=== PATIENT | male | born 1960 | race Caucasian/White ===

== ENCOUNTER 2017-12-02 10:24 | Emergency (ER) | payer BC, OTHER ==
[2017-12-02 10:34] VITALS: BMI 37.6
[2017-12-02 10:37] VITALS: BP 146/85
--- NOTE | 2017-12-02 11:05 | DR.EXTPAIN ---
HPI - Time seen Time seen: 10:45 - PCP Primary Care Physician: DAVON ARZOLA - HPI Comment HPI Comment: WORSE TODAY. PCP SENT PATIENT TO ED. PAIN SEVERE THIS AM. ALSO RASH LOWER MID ABDOMEN THAT IS ITCHING. MACULO PAPULAR RASN, NOT VESICULAR. - Complaint/Symptoms Chief Complaint Doctor Comments: ABDOMINAL AND LOWER BACK PAIN TIMES 2 DAYS. Chief Complaint:: PT C/O ABD PAIN THAT STARTED OVER THE WEEKEND AND THAT HE THINKS HE MAY HAVE A KINDNEY STONES, PT SAW JUDY TODAY AND A UA WAS COLLECTED AND PT WAS TOLD TO COME TO THE ER DUE TO NEED OF FURTHER EVALUATION.. Self Treatment fo Chief Complaint: NORCO, BC POWDERS. - Nurses notes reviewed Nurses Notes Review: Yes - Source History Provided: Patient - Mode of arrival Mode of Arrival: Ambulatory - Timing Onset of Chief Complaint: 11/30/17 - Context History of: Arthritis - Associated signs and symptoms Associated Signs and Symptoms: Pain PMH - PMH Past Medical History: Yes Past Medical History: Migraines Past Medical History Comment: DDD, STENOSIS OF BACK . Past Surgical History: Yes Surgical History: Appendectomy Past Surgical History Comment: KNEE, AND NECK, HERNIA , - Family History History of Family Medical Conditions: Yes Family Medical History: Diabetes Mellitus, Hypertension - Social History Does patient currently use any type of tobacco product: Yes Type of Tobacco Use: Cigarettes How many years tobacco product used: 30 Does any household member use tobacco: No Alcohol Use: None Do you use any recreational Drugs:: No Lives With: Family Lives Where: Home - infectious screening In the last 2 months have you had wt loss of >10#?: NO Have you had fever, night sweats or hemotysis?: No Have you traveled outside the country in the last 6 months?: No Isolation: Standard ROS - Review of Systems Constitutional: No Symptoms Reported Eyes: No Symptoms Reported ENTM: No Symptoms Reported Respiratoy: No Symptoms Reported Cardiovascular: No Symptoms Reported Gastrointestinal/Abdominal: No Symptoms Reported Genitourinary: negative: Dysuria, Frequency, Hematuria Neurological: No Symptoms Reported Musculoskeletal: Joint Pain, Muscle Pain Integumentary: No Symptoms Reported Hematologic/Lymphatic: No Symptoms Reported Endocrine: No Symptoms Reported All Other Systems: Reviewed and Negative PE - Vital Signs Vitals: Temperature 97.9 F Pulse Rate 91 Respiratory Rate 20 Blood Pressure [Left Arm] 106/58 Blood Pressure 146/85 O2 Sat by Pulse Oximetry 98 - General Limitations: No Limitations General Appearance: Alert - Head Head Exam: Normal Inspection - Eyes Eye exam: Normal Appearance - ENT ENT Exam: Normal External Ear Exam - Neck Neck Exam: Normal Inspection - Chest Chest Inspection: Symmetric Chest Wall Rise - Respiratory Respiratory Exam: Normal Lung Sounds Bilat Respiratory Exam: Bilateral Clear to Auscultation - Cardiovascular Cardiovascular Exam: Regular Rate, Normal Rhythm - Abdominal Exam Abdominal Exam: Normal Bowel Sounds, Soft, Tenderness Abdominal Tenderness: RLQ, LLQ, Mild - Extremities Extremities Exam: Normal Inspection - Lower Extremities Neurovascular/Tendon Exam: Normal Capillary Refill Gait Exam: Observed and Normal - Back Back Exam: Paraspinal Tenderness - Neurological Neurological Exam: Alert, Oriented X3 - Psychiatric Psychiatric Exam: Anxious - Skin Skin Exam: Normal Color, Erythema MDM - Differential Diagnosis Differential Diagnosis: Fracture, Sprain (UTI, KIDNEY STONE) Course - Treatment Treatment: SEE ORDERS. - Education/Counseling Education/Counseling: Patient, Education Educated On: Diagnosis, Needs for Follow Up ROR - Labs Reviewed Laboratory Results Reviewed?: Yes Result Diagrams: 12/02/17 11:19 12/02/17 11:19 Laboratory: WBC 8.2 X10^3/uL (3.6-10.0) 12/02/17 11:19 RBC 5.04 X10^6/uL (4.7-6.0) 12/02/17 11:19 Hgb 15.5 g/dL (13.5-18.0) 12/02/17 11:19 Hct 45.2 % (42.0-54.0) 12/02/17 11:19 MCV 89.8 fL (80.0-100.0) 12/02/17 11:19 MCH 30.9 pg (27.0-34.0) 12/02/17 11:19 MCHC 34.4 g/dL (33.0-35.0) 12/02/17 11:19 RDW 14.8 % (11.6-16.5) 12/02/17 11:19 Plt Count 168 X10^3/uL (150.0-450.0) 12/02/17 11:19 MPV 9.2 fL (7.4-11.0) 12/02/17 11:19 Neut % 73.1 % (42.0-75.0) 12/02/17 11:19 Lymph % 15.6 % (21.0-51.0) L 12/02/17 11:19 [place] % 8.4 % (0.0-13.0) 12/02/17 11:19 Eos % 2.2 % (0.9-2.9) 12/02/17 11:19 Baso % 0.7 % (0.2-1.0) 12/02/17 11:19 Neut # 6.0 x10^3/uL (2.2-4.8) H 12/02/17 11:19 Lymph # 1.3 X10^3/uL (1.3-2.9) 12/02/17 11:19 [place] # 0.7 x10^3/uL (0.3-0.8) 12/02/17 11:19 Eos # 0.2 x10^3/uL (0.0-0.2) 12/02/17 11:19 Baso # 0.1 X10^3/uL (0.0-0.1) 12/02/17 11:19 Absolute Nucleated RBC 0.2 /100WBC 12/02/17 11:19 INR Target Range - 12/02/17 11:19 INR 1.11 (0.8-1.3) 12/02/17 11:19 PTT 33.9 SECONDS (22.9-36.5) 12/02/17 11:19 PTT Comment - 12/02/17 11:19 Sodium 133 mmol/L (136-145) L 12/02/17 11:19 Corrected Sodium TNP 12/02/17 11:19 Potassium 4.0 mmol/L (3.5-5.1) 12/02/17 11:19 Chloride 107 mmol/L (98-107) 12/02/17 11:19 Carbon Dioxide 24.5 mmol/L (21-32) 12/02/17 11:19 BUN 12 mg/dL (7-18) 12/02/17 11:19 Creatinine 1.01 mg/dL (0.70-1.30) 12/02/17 11:19 Est GFR (MDRD) Af Amer > 60 (>60) 12/02/17 11:19 Est GFR (MDRD) Non-Af > 60 (>60) 12/02/17 11:19 Glucose 102 mg/dL (65-99) H 12/02/17 11:19 Calcium 9.0 mg/dL (8.5-10.1) 12/02/17 11:19 Corrected Calcium TNP 12/02/17 11:19 Total Bilirubin 0.30 mg/dL (0.2-1.0) 12/02/17 11:19 AST 20 Units/L (15-37) 12/02/17 11:19 ALT 16 Units/L (12-78) 12/02/17 11:19 Alkaline Phosphatase 66 Units/L (46-116) 12/02/17 11:19 Total Protein 8.1 g/dL (6.4-8.2) 12/02/17 11:19 Albumin 3.6 g/dL (3.4-5.0) 12/02/17 11:19 Globulin 4.5 g/dL (2.5-4.5) 12/02/17 11:19 Albumin/Globulin Ratio 0.8 Ratio (1.1-2.1) L 12/02/17 11:19 Amylase 52 Units/L (25-115) 12/02/17 11:19 Lipase 178 Units/L (73-393) 12/02/17 11:19 - XRAY XRAY Interpreted by: Radiologist XRAY Findings: REPORT DISCUSS WITH PATIENT AND . - Diagnosis Discharge Problem: Musculoskeletal pain, Pruritus, Rash Back pain Qualifiers: Back pain location: low back pain Chronicity: acute Back pain laterality: unspecified Sciatica presence: without sciatica Qualified Code(s): M54.5 - Low back pain Abdominal pain Qualifiers: Abdominal location: generalized Qualified Code(s): R10.84 - Generalized abdominal pain - Discharge Plan Disposition: HOME, SELF-CARE Condition: Stable Prescriptions: Cyclobenzaprine HCl [FLEXERIL 10 MG *] 10 mg PO TID #20 tab Hydroxyzine Pamoate [Vistaril] 25 mg PO TID PRN #15 cap PRN Reason: Ketorolac Tromethamine [Toradol Tab] 10 mg PO Q8H PRN #20 tab PRN Reason: Pain Tramadol HCl 50 mg PO Q8H #15 tablet - Follow ups/Referrals Follow ups/Referrals: JUDY BOYLE [Primary Care Provider] - 3 days - Instructions Instructions: Pruritus, Abdominal Pain, Adult, [id number], Back Pain, Adult, [id number] Additional Instructions: RETURN TO ED IF WORSE.
[2017-12-02] MEDS ORDERED: ZOFRAN INJ 4 MG VIAL IVP ONE (11:09)
[2017-12-02] MEDS ORDERED: MORPHINE SULFATE INJ 4 MG IVP ONE (11:09)
[2017-12-02] MEDS ORDERED: NS 1000 ML 1,000 ML IV ONE (11:09)
[2017-12-02] MEDS ORDERED: NS 1000 ML 1,000 ML ONE (11:16)
[2017-12-02] MEDS ORDERED: ZOFRAN INJ 4 MG VIAL ONE (11:16)
[2017-12-02] MEDS ORDERED: MORPHINE SULFATE INJ 4 MG ONE (11:17)
[2017-12-02 11:36] LABS: BASOPHILS # (AUTO) 0.1 X10^3/uL (0.0-0.1); BASOPHILS % (AUTO) 0.7 % (0.2-1.0); EOSINOPHILS # (AUTO) 0.2 x10^3/uL (0.0-0.2); EOSINOPHILS % (AUTO) 2.2 % (0.9-2.9); HEMATOCRIT 45.2 % (42.0-54.0); HEMOGLOBIN 15.5 g/dL (13.5-18.0); LYMPHOCYTES # (AUTO) 1.3 X10^3/uL (1.3-2.9); LYMPHOCYTES % (AUTO) 15.6 % (21.0-51.0); MEAN CORPUSCULAR HEMOGLOBIN 30.9 pg (27.0-34.0); MEAN CORPUSCULAR HGB CONC 34.4 g/dL (33.0-35.0); MEAN CORPUSCULAR VOLUME 89.8 fL (80.0-100.0); MEAN PLATELET VOLUME 9.2 fL (7.4-11.0); MONOCYTES # (AUTO) 0.7 x10^3/uL (0.3-0.8); MONOCYTES % (AUTO) 8.4 % (0.0-13.0); NEUTROPHILS % (AUTO) 73.1 % (42.0-75.0); PLATELET COUNT 168 X10^3/uL (150.0-450.0); RED BLOOD COUNT 5.04 X10^6/uL (4.7-6.0); RED CELL DISTRIBUTION WIDTH 14.8 % (11.6-16.5); WHITE BLOOD COUNT 8.2 X10^3/uL (3.6-10.0)
[2017-12-02 11:38] LABS: ALANINE AMINOTRANSFERASE 16 Units/L (12-78); ALBUMIN 3.6 g/dL (3.4-5.0); ALKALINE PHOSPHATASE 66 Units/L (46-116); AMYLASE 52 Units/L (25-115); ASPARTATE AMINO TRANSFERASE 20 Units/L (15-37); BLOOD UREA NITROGEN 12 mg/dL (7-18); CARBON DIOXIDE 24.5 mmol/L (21-32); CHLORIDE 107 mmol/L (98-107); CREATININE 1.01 mg/dL (0.70-1.30); LIPASE 178 Units/L (73-393); SODIUM 133 mmol/L (136-145); TOTAL PROTEIN 8.1 g/dL (6.4-8.2); eGFR BLACK RACES > 60 (>60); eGFR NON BLACK RACES > 60 (>60)
--- NOTE | 2017-12-02 12:22 | CT ---
CT ABDOMEN AND PELVIS WITHOUT CONTRAST CLINICAL HISTORY: 57-year-old male with right lower quadrant pain. COMPARISON: CT abdomen and pelvis 07/02/2014. TECHNIQUE: Multiple contiguous computed tomographic axial images of the abdomen and pelvis were obtai melania without the use of oral or intravenous contrast. Images were reformatted in the coronal and sagit surya planes. FINDINGS: The lung bases demonstrate no evidence of focal air-space opacification, pleural effusion, pneumothor ax, or suspicious pulmonary nodules. The imaged inferior mediastinum and heart are normal in appeara nce without evidence of pericardial effusion. The liver, gallbladder, and spleen are within normal limits for noncontrast imaging. Moderately fatty replaced pancreas, which is otherwise unremarkable. Adrenal glands are unremarkable bilaterally. Stable bilateral renal cystic lesions with vascular calc ifications versus nonobstructing bilateral renal stones present. There are no nephroureteral stones o r perinephric fluid collections. There is no evidence of hydroureteronephrosis and the ureters run in an unobstructed course to a well distended urinary bladder. The prostate, seminal vesicles, and external genitalia are within normal limits. Status post appendectomy. The bowel is without obstruction or inflammation and there is no free flui d or free air within the peritoneal cavity. Diverticulosis without CT evidence of diverticulitis. The re are no pathologically enlarged lymph nodes in the abdomen or pelvis. Severe atherosclerotic calcification within the aorta and its branches. Soft tissues are normal. The osseous structures are intact without fracture or malalignment. Multiple chronic right-sided rib fractures. IMPRESSION: 1. Multiple bilateral renal punctate calcifications, atherosclerotic disease versus nonobstructing st ones with multiple stable appearing bilateral renal cysts. 2. Diverticulosis without CT evidence of diverticulitis. 3. Status post appendectomy. 4. No acute intra-abdominal or intrapelvic process otherwise. Reported By:
== END 2017-12-02 13:47 | disposition home or self-care (01) ==
LOC: ER 10:40
DX: R10.84 Generalized abdominal pain (principal); M79.1 Myalgia; R21 Rash and other nonspecific skin eruption; L29.8 Other pruritus; M54.5 Low back pain
CPT/HCPCS: 36415; 74176; 80053; 82150; 83690; 85025; 85610; 85730; 96365; 96374; 96375; 99282; 99283; A4222; J2270; J2405

== ENCOUNTER → 2017-12-03 | Outpatient (CLI) | payer BC ==
[2017-12-02 10:37] VITALS: BP 146/85
--- NOTE | 2017-12-03 16:53 | CT ---
HISTORY: Right lower quadrant pain. Study: CT abdomen and pelvis with contrast Comparison: CT abdomen/pelvis dated December 02, 2017. Technique: Multiple axial images of the abdomen and pelvis were obtained from the lung bases to the pubic symphy sis after the administration of IV contrast. Dose reduction techniques including Automated Exposure Control (AEC) and adjustment of mA and kV were utilized. Findings: The visualized portions of the lung bases are unremarkable. Diffuse fatty infiltration of the liver. No obvious liver lesions. Multiple bilateral renal cysts and too small to characterize hypodense lesi ons appear unchanged given technique. Multiple bilateral nonobstructing renal nephroliths appear unch anged. The spleen, pancreas, and adrenal glands are unremarkable in their CT appearance. The gallblad alyssa is unremarkable in its CT appearance. No significant mesenteric lymphadenopathy or stranding can be observed. No free fluid or free air is seen within the abdomen. Scattered colonic diverticulum without evidence of diverticulitis. Remaining large and small bowel are unremarkable. The appendix i s surgically absent. The urinary bladder is grossly unremarkable. Degenerative changes of the spine. No aggressive osseous lesions. Vascular calcifications without evidence of aneurysmal dilatation. IMPRESSION: 1. No CT evidence of acute abdominal/pelvic pathology. 2. Other chronic findings as above. Reported By:
== END ==
LOC: RAD 15:13
PROVIDERS: ATTEND Nurse Practitioner
DX: R10.84 Generalized abdominal pain (principal)
CPT/HCPCS: 74177; A4222

== ENCOUNTER 2022-08-20 23:50 | Observation (INO) ==
--- NOTE | 2022-08-21 00:03 | DR.URIAD ---
HPI Time Seen Time Seen by Provider: 08/21/22 00:03 PMH PMH Past Medical History: Migraines Past Surgical History: Yes Surgical History: Appendectomy Family History Family Medical History: Diabetes Mellitus and Hypertension Social History Do you use any recreational Drugs:: No PE Vital Signs Vitals: Temperature 98.7 F Pulse Rate [Right] 66 Pulse Rate 71 Respiratory Rate 24 Blood Pressure [Left Arm] 106/58 Blood Pressure 117/60 O2 Sat by Pulse Oximetry 91 ROR Labs Reviewed Result Diagrams: 08/21/22 00:20 08/21/22 00:20 Laboratory: WBC 7.4 X10^3/uL (3.6-10.0) 08/21/22 00:20 RBC 4.33 X10^6/uL (4.7-6.0) L 08/21/22 00:20 Hgb 14.0 g/dL (13.5-18.0) 08/21/22 00:20 Hct 39.8 % (42.0-54.0) L 08/21/22 00:20 MCV 91.9 fL (80.0-100.0) 08/21/22 00:20 MCH 32.4 pg (27.0-34.0) 08/21/22 00:20 MCHC 35.2 g/dL (33.0-35.0) H 08/21/22 00:20 RDW 14.4 % (11.6-16.5) 08/21/22 00:20 Plt Count 93 X10^3/uL (150.0-450.0) L 08/21/22 00:20 Plt Count Comment Decreased (ADEQUATE) 08/21/22 00:20 MPV 8.3 fL (7.4-11.0) 08/21/22 00:20 Neut % (Auto) 91.6 % (42.0-75.0) H 08/21/22 00:20 Lymph % (Auto) 3.2 % (21.0-51.0) L 08/21/22 00:20 [place] % (Auto) 5.1 % (0.0-13.0) 08/21/22 00:20 Eos % (Auto) 0.0 % (0.9-2.9) L 08/21/22 00:20 Baso % (Auto) 0.1 % (0.2-1.0) L 08/21/22 00:20 Neut # (Auto) 6.8 x10^3/uL (2.2-4.8) H 08/21/22 00:20 Lymph # (Auto) 0.2 X10^3/uL (1.3-2.9) L 08/21/22 00:20 [place] # (Auto) 0.4 x10^3/uL (0.3-0.8) 08/21/22 00:20 Eos # (Auto) 0.0 x10^3/uL (0.0-0.2) 08/21/22 00:20 Baso # (Auto) 0.0 X10^3/uL (0.0-0.1) 08/21/22 00:20 Absolute Nucleated RBC 0.0 /100WBC 08/21/22 00:20 Total Counted 100 08/21/22 00:20 Neutrophils % (Manual) 93 % (39-76) H 08/21/22 00:20 Band Neutrophils % 3 % (0-10) 08/21/22 00:20 Lymphocytes % (Manual) 2 % (13-43) L 08/21/22 00:20 Monocytes % (Manual) 2 % (4-9) L 08/21/22 00:20 Plt Morphology Comment Normal (NORMAL) 08/21/22 00: RBC Morphology Normal (NORMAL) 08/21/22 00:20 D-Dimer 0.59 ug/ml (0.0-0.57) H 08/21/22 00:20 Sample Site Lr 08/21/22 00:33 ABG pH 7.390 (7.35-7.45) 08/21/22 00: ABG pCO2 41.0 mmHg (35.0-45.0) 08/21/22 00: ABG pO2 44.0 mmHg (80.0-100.0) L* 08/21/22: ABG HCO3 24.8 mmol/L (22-26) 08/21/22 00: ABG O2 Saturation 79.0 % (90-100) L* 08/21/22 00: ABG Base Excess -0.2 mmol/L (-2.0-2.0) 08/21/22 00:33 [place] Test Pos 08/21/22 00:33 A-a Gradient 54.0 mmHg 08/21/22 00:33 FiO2 21.0 08/21/22 00:33 Blood Gas Comments More well ae 08/21/22 00:33 Sodium 135 mmol/L (136-145) L 08/21/22 00:20 Corrected Sodium 137 mmol/L (136-145) 08/21/22 00:20 Potassium 3.7 mmol/L (3.5-5.1) 08/21/22 00:20 Chloride 100 mmol/L (98-107) 08/21/22 00:20 Carbon Dioxide 24.1 mmol/L (21-32) 08/21/22 00:20 BUN 17 mg/dL (7-18) 08/21/22 00:20 Creatinine 1.19 mg/dL (0.70-1.30) 08/21/22 00:20 Est GFR (MDRD) Af Amer > 60 (>60) 08/21/22 00:20 Est GFR (MDRD) Non-Af > 60 (>60) 08/21/22 00:20 Glucose 203 mg/dL (65-99) H 08/21/22 00:20 Lactic Acid 1.0 mmol/L (0.4-2.0) 08/21/22 00:20 Calcium 7.7 mg/dL (8.5-10.1) L 08/21/22 00:20 Corrected Calcium 8.3 mg/dL (8.5-10.1) L 08/21/22 00:20 Total Bilirubin 0.30 mg/dL (0.2-1.0) 08/21/22 00:20 AST 27 Units/L (15-37) 08/21/22 00:20 ALT 13 Units/L (12-78) 08/21/22 00:20 Alkaline Phosphatase 45 Units/L (46-116) L 08/21/22 00:20 Creatine Kinase 287 Units/L (39-308) 08/21/22 00:20 Troponin I High Sens 9.2 ng/L (4.0-60.0) 08/21/22 00:20 C-Reactive Protein 129.50 mg/L (0-3.0) H 08/21/22 00:20 B-Natriuretic Peptide 28.7 pg/mL (0-79) 08/21/22 00:20 Total Protein 7.1 g/dL (6.4-8.2) 08/21/22 00:20 Albumin 3.3 g/dL (3.4-5.0) L 08/21/22 00:20 Globulin 3.8 g/dL (2.5-4.5) 08/21/22 00:20 Albumin/Globulin Ratio 0.9 Ratio (1.1-2.1) L 08/21/22 00:20 SARS-CoV-2 (PCR) Negative (NEGATIVE) 08/21/22 00:07 Influenza Type A (PCR) Positive (NEGATIVE) A 08/21/22 00:07 Influenza Type B (PCR) Negative (NEGATIVE) 08/21/22 00:07 RSV (PCR) Negative (NEGATIVE) 08/21/22 00:07 Opioid Opioid Risk Tool Total: 0 Total Score Risk Category: Low Risk Copyright: Darian EDWARDS predicting aberrant behaviors Discharge Plan Diagnosis Discharge Problem: Influenza A, Hypoxia, Bronchitis Discharge Plan Patient Disposition: 01 HOME, SELF-CARE Condition: Stable Orders to Discharge Patient Discharge Orders: Transfer (Routine); Ordered 08/21/22 Ordered By: HAYLIE GREGG
[2022-08-21 00:38] LABS: ABG BASE EXCESS -0.2 mmol/L (-2.0-2.0); ABG HCO3 24.8 mmol/L (22-26)
[2022-08-21 00:39] LABS: ABG ALLEN TEST POS
[2022-08-21 00:57] LABS: BASOPHILS % (AUTO) 0.1 % (0.2-1.0); HEMATOCRIT 39.8 % (42.0-54.0); LYMPHOCYTES # (AUTO) 0.2 X10^3/uL (1.3-2.9); LYMPHOCYTES % (AUTO) 3.2 % (21.0-51.0); MEAN CORPUSCULAR HEMOGLOBIN 32.4 pg (27.0-34.0); MEAN CORPUSCULAR HGB CONC 35.2 g/dL (33.0-35.0); MEAN CORPUSCULAR VOLUME 91.9 fL (80.0-100.0); MEAN PLATELET VOLUME 8.3 fL (7.4-11.0); MONOCYTES # (AUTO) 0.4 x10^3/uL (0.3-0.8); MONOCYTES % (AUTO) 5.1 % (0.0-13.0); NEUTROPHILS # (AUTO) 6.8 x10^3/uL (2.2-4.8); NEUTROPHILS % (AUTO) 91.6 % (42.0-75.0); RED BLOOD COUNT 4.33 X10^6/uL (4.7-6.0); RED CELL DISTRIBUTION WIDTH 14.4 % (11.6-16.5); WHITE BLOOD COUNT 7.4 X10^3/uL (3.6-10.0)
[2022-08-21 00:58] LABS: ALANINE AMINOTRANSFERASE 13 Units/L (12-78); ALBUMIN 3.3 g/dL (3.4-5.0); ALKALINE PHOSPHATASE 45 Units/L (46-116); ASPARTATE AMINO TRANSFERASE 27 Units/L (15-37); BLOOD UREA NITROGEN 17 mg/dL (7-18); CALCIUM 7.7 mg/dL (8.5-10.1); CARBON DIOXIDE 24.1 mmol/L (21-32); CHLORIDE 100 mmol/L (98-107); COR CA(FOR HYPOALB) 8.3 mg/dL (8.5-10.1); COR NA(FOR HYPERGLY) 137 mmol/L (136-145); CREATINE KINASE 287 Units/L (39-308); CREATININE 1.19 mg/dL (0.70-1.30); SODIUM 135 mmol/L (136-145); TOTAL PROTEIN 7.1 g/dL (6.4-8.2); eGFR NON BLACK RACES > 60 (>60)
[2022-08-21 01:13] LABS: BAND NEUTROPHILS % 3 % (0-10); PLATELET MORPHOLOGY COMMENT NORMAL (NORMAL)
[2022-08-21] MEDS ORDERED: NS 100 ML IV 100 ML ONE (02:38)
--- NOTE | 2022-08-21 03:46 | CT ---
PROCEDURE: CTA Chest .HISTORY: Cough and myalgias with fever, anorexia, and op Oxy a.TECHNIQUE: Axial images were performed through the chest with the administration of IV contrast with multiplanar reformations . 3D and MIPS reconstructions were performed and reviewed. Dose reduction techniques including Automated Exposure Control (AEC) and adjustment of mA and kV were utilized .COMPARISON: None .TECHNICAL QUALITY: Satisfactory .FINDINGS:Mild atherosclerosis thoracic aorta with no aneurysm. Aortic lumen is unopacified with contrast.No evidence of pulmonary embolus.Mediastinum and hilar regions show no masses or lymphadenopathy.Normal size heart with no pericardial fluid.No pulmonary consolidation, masses, or pleural fluid. Linear scar versus discoid atelectasis both lung bases.Visualized upper abdomen shows no abnormality.No acute bony abnormality.IMPRESSION:1. No pulmonary embolus.2. No pulmonary consolidation.Electronically signed by: Tristen Reid (Aug 21, 2022 03:45:08)
[2022-08-21] MEDS ORDERED: LEVAQUIN PREMIX IV 500 MG 500 MG/100 ML BAG IV ONE ×2 (04:36→04:49)
[2022-08-21] MEDS ORDERED: NS 1,000 ML IV 1,000 ML ONE (04:49)
[2022-08-21] MEDS: NS 1,000 ML IV 1,000 ML IV SCH ×3 (04:55→21:03)
--- NOTE | 2022-08-21 05:29 | RAD ---
PROCEDURE: Chest X-ray 1 View .HISTORY: Hypoxia and cough with myalgias and fever. Anorexia.TECHNIQUE: AP portable done at 1:05 a.m..COMPARISON: 05/26/2021.TECHNICAL QUALITY: Satisfactory .FINDINGS:Normal size heart .Mediastinum and hilar regions show no masses or lymphadenopathy .Normal central vascularity .No pulmonary consolidation, masses, pleural fluid, or pneumothorax .No acute bony abnormality .IMPRESSION:No active cardiopulmonary disease .Electronically signed by: Tristen Reid (Aug 21, 2022 05:27:20)
[2022-08-21] MEDS ORDERED: DUONEB 0.5 MG/3 MG (3 mL) NEB SCH (06:18)
[2022-08-21 06:41] VITALS: BMI 35.1
[2022-08-21] MEDS: DUONEB 0.5 MG/3 MG (3 mL) NEB SCH ×4 (08:30→20:51)
[2022-08-21] MEDS: PULMICORT NEB TX 0.5 MG NEB SCH ×2 (08:31→20:51)
[2022-08-21] MEDS: TAMIFLU PO SCH ×2 (13:42→21:06)
[2022-08-21] MEDS: SOLU-Medrol 40 MG VIAL IVP SCH ×3 (13:42→21:06)
[2022-08-22] MEDS ORDERED: NORCO 5/325 MG TAB PO PRN (00:30)
[2022-08-22] MEDS: DUONEB 0.5 MG/3 MG (3 mL) NEB SCH ×6 (00:33→20:45)
[2022-08-22] MEDS: NS 1,000 ML IV 1,000 ML IV SCH ×4 (04:49→22:01)
[2022-08-22] MEDS: SOLU-Medrol 40 MG VIAL IVP SCH ×3 (05:12→21:04)
[2022-08-22 06:20] LABS: BASOPHILS % (AUTO) 0.1 % (0.2-1.0); HEMATOCRIT 38.6 % (42.0-54.0); HEMOGLOBIN 13.7 g/dL (13.5-18.0); LYMPHOCYTES # (AUTO) 0.4 X10^3/uL (1.3-2.9); LYMPHOCYTES % (AUTO) 7.3 % (21.0-51.0); MEAN CORPUSCULAR HEMOGLOBIN 32.5 pg (27.0-34.0); MEAN CORPUSCULAR HGB CONC 35.6 g/dL (33.0-35.0); MEAN CORPUSCULAR VOLUME 91.4 fL (80.0-100.0); MEAN PLATELET VOLUME 8.4 fL (7.4-11.0); MONOCYTES # (AUTO) 0.2 x10^3/uL (0.3-0.8); MONOCYTES % (AUTO) 3.3 % (0.0-13.0); NEUTROPHILS # (AUTO) 4.8 x10^3/uL (2.2-4.8); NEUTROPHILS % (AUTO) 89.3 % (42.0-75.0); RED BLOOD COUNT 4.22 X10^6/uL (4.7-6.0); RED CELL DISTRIBUTION WIDTH 14.2 % (11.6-16.5); WHITE BLOOD COUNT 5.4 X10^3/uL (3.6-10.0)
[2022-08-22 06:57] LABS: ALANINE AMINOTRANSFERASE 12 Units/L (12-78); ALKALINE PHOSPHATASE 39 Units/L (46-116); ASPARTATE AMINO TRANSFERASE 30 Units/L (15-37); BLOOD UREA NITROGEN 11 mg/dL (7-18); CALCIUM 7.9 mg/dL (8.5-10.1); CARBON DIOXIDE 25.6 mmol/L (21-32); CHLORIDE 105 mmol/L (98-107); COR CA(FOR HYPOALB) 8.7 mg/dL (8.5-10.1); COR NA(FOR HYPERGLY) 141 mmol/L (136-145); CREATININE 0.87 mg/dL (0.70-1.30); MAGNESIUM 1.8 mg/dL (2.0-2.9); SODIUM 138 mmol/L (136-145); TOTAL PROTEIN 6.7 g/dL (6.4-8.2); eGFR NON BLACK RACES > 60 (>60)
[2022-08-22] MEDS: PULMICORT NEB TX 0.5 MG NEB SCH ×2 (08:23→20:45)
[2022-08-22] MEDS ORDERED: ZANAFLEX PO PRN (08:40)
[2022-08-22] MEDS ORDERED: NORCO 10/325 TAB ONE (09:01)
[2022-08-22] MEDS ORDERED: COREG TAB 6.25 MG ONE (09:01)
[2022-08-22] MEDS: NORCO 10/325 TAB PO SCH ×4 (09:40→21:03)
[2022-08-22] MEDS: LEVAQUIN PREMIX IV 500 MG 500 MG/100 ML BAG IV SCH (09:41)
[2022-08-22] MEDS: TAMIFLU PO SCH ×2 (09:41→21:04)
[2022-08-22] MEDS: COREG TAB 6.25 MG PO SCH ×2 (09:41→21:04)
[2022-08-22] MEDS: PROTONIX TAB 40 MG PO SCH (10:13)
[2022-08-22] MEDS: ZETIA TAB 10 MG PO SCH (10:13)
[2022-08-22] MEDS: PLAVIX PO SCH (10:14)
--- NOTE | 2022-08-22 21:35 | DR.H&P ---
H&P - History & Physical for Day of: H&P Date: 08/21/22 - Chief Complaint Chief Complaint: SHORTNESS OF BREATH, COUGH, LOW OXYGEN SATURATIONS - History of Present Illness History of Present Illness: IS A 62 YEAR OLD PATIENT OF OURS. HE PRESENTED TO THE ER WITH COMPLAINTS OF COUGH, SHORTNESS OF BREATH, RESPIRATORY DISTRESS, AND LOW OXYGEN SATURATIONS. SHORTNESS OF BREATH AND COUGH STARTED THREE DAYS PRIOR TO ARRIVAL. HE REPORTEDLY BECAME HYPOXIC PRIOR TO PRESENTING TO THE ER. ON ARRIVAL, VITALS WERE: 100.8-98-24-85%-134/71. OXYGEN WAS APPLIED AT 3 LPM. SATURATIONS INCREASED TO 93%. LABS WERE OBTAINED. WBC 7.4, RBC 4.33, HGB 14.0, HCT 39.8, PLT COUNT 93, D-DIMER 0.59, SODIUM 135, POTASSIUM 3.7, CHLORIDE 100, CARBON DIOXIDE 24.1, BUN 17, CREATININE 1.19 GLUCOSE 203, CALCIUM 7.7, AST 27, ALT 13, ALK PHOS 45, CREATINE KINASE 287, TROPONIN 9.2, CRP 129.50, BNP 28.7, TOTAL PROTEIN 7.1, ALBUMIN 3.3. ABG OBTAINED AND REVEALED: 7.390, PC02 41, P02 44, HC03 24.8, 02 SAT 79, A-A GRADIENT 54, FI02 21. INFLUENZA A POSITIVE. COVID AND RSV NEGATIVE. SPUTUM AND BLOOD CULTURES WERE SET UP. CHEST XRAY WAS OBTAINED AND REVEALED: No active cardiopulmonary disease. EKG REVEALED SINUS RHYTHM WITH HR 93. CHEST CTA OBTAINED AND REVEALED: Mild atherosclerosis thoracic aorta with no aneurysm. Aortic lumen is unopacified with contrast. No evidence of pulmonary embolus. Mediastinum and hilar regions show no masses or lymphadenopathy. Normal size heart with no pericardial fluid. No pulmonary consolidation, masses, or pleural fluid. Linear scar versus discoid atelectasis both lung bases. Visualized upper abdomen shows no abnormality. No acute bony abnormality. IN THE ER, HE WAS GIVEN A NORMAL SALINE BOLUS AND LEVAQUIN 500MG IV X 1. HE WAS ADMITTED TO THE HOSPITAL FOR FURTHER EVALUATION AND TREATMENT OF ACUTE RESPIRATORY FAILURE, INFLUENZA A, HYPOXIA, ACUTE BRONCHITIS. HE WAS STARTED ON NORMAL SALINE AT 75 ML/HR, SOLU-MEDROL 80MG IV Q8H, LEVAQUIN 500MG IV DAILY, DUONEBS Q4H, PULMICORT NEBS BID, TAMIFLU 75MG PO BID, AND HIS HOME MEDICATIONS WERE RESUMED. OTHERWISE, WE PLAN TO FOLLOW-UP WITH AM LABS AND CONTINUE TO MONITOR. TIME SPENT ON CLINICAL ASSESSMENT, REVIEWING LABS AND IMAGING, DECISION MAKING, AND DOCUMENTATION GREATER THAN 75 MINUTES. - Past Medical History Past Medical History: COPD, Coronary Artery Disease, Migraines, GERD, Hypertension - Past Surgical History Surgical History: Angioplasty/Stents, Appendectomy, Ortho Surgery - Family History Family Medical History: Diabetes Mellitus, [place], Coronary Artery Disease, Heart Failure, Hypertension - Social History Does patient currently use any type of tobacco product: Yes Have you used tobacco products in the last 12 months: Yes Type of Tobacco Use: Cigarettes How many years tobacco product used: 20 Does any household member use tobacco: (NA) Alcohol Use: None Drug Use: None - Medications Home Medications: ceftriaxone [From Rocephin] Allergy (Verified 08/21/22 00:08) dexamethasone Allergy (Verified 12/02/17 11:39) CONTINUE taking the following medications azithromycin 250 mg tablet 1 tab PO DIRECTED 08/21/22 [History] carvedilol 6.25 mg tablet 6.25 mg PO BID 08/21/22 [History] clopidogrel 75 mg tablet 1 tab PO QDAY 08/21/22 [History] ezetimibe 10 mg tablet 1 tab PO QDAY 08/21/22 [History] fluticasone fur. 100 mcg-umeclid 62.5 mcg-vilant 25 mcg inhalat.powder (Trelegy Ellipta) 1 puff inhalation QDAY 08/21/22 [History] hydrocodone 10 mg-acetaminophen 325 mg tablet 1 tab PO QID 08/21/22 [History] ipratropium 0.5 mg-albuterol 3 mg (2.5 mg base)/3 mL nebulization soln 3 ml inhalation TID PRN 08/21/22 [History] methylprednisolone 4 mg tablets in a dose pack 1 tab PO DIRECTED 08/21/22 [History] nirmatrelvir 300 mg (150 mg x2)-ritonavir 100 mg tablet,dose pack(EUA) (Paxlovid) 3 tab PO BID 08/21/22 [History] pantoprazole 40 mg tablet,delayed release 1 tab PO QDAY 08/21/22 [History] tizanidine 4 mg tablet 1 tab PO Q6H PRN 08/21/22 [History] - Review of Systems Constitutional: Weakness Eyes: No Symptoms Reported ENT: No Symptoms Reported Respiratory: Cough, Shortness of Breath, SOB with Excertion, Wheezing Cardiovascular: No Symptoms Reported Gastrointestinal: No Symptoms Reported Genitourinary: No Symptoms Reported Musculoskeletal: No Symptoms Reported Skin: No Symptoms Reported Neurological: Weakness - Physical Exam Vital Signs: Temperature 98.6 F Pulse Rate [Right] 72 Pulse Rate 104 Respiratory Rate 18 Blood Pressure [Right Arm] 136/80 Blood Pressure [Left Arm] 143/79 Blood Pressure 117/60 O2 Sat by Pulse Oximetry 92 Oriented: Normal Eyes: Normal Ear: Normal Nose: Normal Throat: Normal Respiratory: Wheezes Throughout Cardiovascular: Normal : Normal Auscultation: Bowel Sounds: Normal Palpation: Normal Tenderness: Normal Skin: Normal Musculoskeletal: Normal Psychiatric: Normal Mood Description: Calm Affect: Normal Speech Pattern: Clear - Assessment/Plan (1) Acute respiratory failure Qualifiers: Respiratory failure complication: hypoxia Qualified Code(s): J96.01 - Acute respiratory failure with hypoxia Status: Acute Plan: ADMIT, NORMAL SALINE AT 75 ML/HR, SOLU-MEDROL 80MG IV Q8H, LEVAQUIN 500MG IV DAILY, DUONEBS Q4H, PULMICORT NEBS BID, TAMIFLU 75MG PO BID, AND HIS HOME MEDICATIONS WERE RESUMED. (2) Influenza A Status: Acute (3) Hypoxia Status: Acute (4) Bronchitis Status: Acute - Allergies Allergies/Adverse Reactions: Allergies Allergy/AdvReac Type Severity Reaction Status Date / Time ceftriaxone [From Rocephin] Allergy Verified 08/21/22 00:08 dexamethasone Allergy Verified 12/02/17 11:39
[2022-08-23] MEDS: DUONEB 0.5 MG/3 MG (3 mL) NEB SCH ×6 (00:38→21:41)
[2022-08-23] MEDS: SOLU-Medrol 40 MG VIAL IVP SCH ×3 (05:06→21:02)
[2022-08-23 06:09] LABS: ABG ALLEN TEST POS; ABG BASE EXCESS 3.5 mmol/L (-2.0-2.0); ABG HCO3 28.5 mmol/L (22-26)
[2022-08-23 06:31] LABS: BASOPHILS % (AUTO) 0.1 % (0.2-1.0); HEMATOCRIT 37.7 % (42.0-54.0); HEMOGLOBIN 13.1 g/dL (13.5-18.0); LYMPHOCYTES # (AUTO) 0.4 X10^3/uL (1.3-2.9); LYMPHOCYTES % (AUTO) 5.7 % (21.0-51.0); MEAN CORPUSCULAR HEMOGLOBIN 32.2 pg (27.0-34.0); MEAN CORPUSCULAR HGB CONC 34.8 g/dL (33.0-35.0); MEAN CORPUSCULAR VOLUME 92.5 fL (80.0-100.0); MEAN PLATELET VOLUME 8.7 fL (7.4-11.0); MONOCYTES # (AUTO) 0.3 x10^3/uL (0.3-0.8); NEUTROPHILS % (AUTO) 90.2 % (42.0-75.0); RED BLOOD COUNT 4.08 X10^6/uL (4.7-6.0); RED CELL DISTRIBUTION WIDTH 14.3 % (11.6-16.5); WHITE BLOOD COUNT 7.8 X10^3/uL (3.6-10.0)
[2022-08-23 06:36] LABS: ALANINE AMINOTRANSFERASE 24 Units/L (12-78); ALBUMIN 2.8 g/dL (3.4-5.0); ALKALINE PHOSPHATASE 38 Units/L (46-116); ASPARTATE AMINO TRANSFERASE 35 Units/L (15-37); BLOOD UREA NITROGEN 12 mg/dL (7-18); CALCIUM 8.2 mg/dL (8.5-10.1); CARBON DIOXIDE 26.8 mmol/L (21-32); CHLORIDE 103 mmol/L (98-107); COR CA(FOR HYPOALB) 9.2 mg/dL (8.5-10.1); COR NA(FOR HYPERGLY) 140 mmol/L (136-145); CREATININE 0.92 mg/dL (0.70-1.30); SODIUM 137 mmol/L (136-145); TOTAL PROTEIN 6.3 g/dL (6.4-8.2); eGFR NON BLACK RACES > 60 (>60)
[2022-08-23 07:43] LABS: BAND NEUTROPHILS % 2 % (0-10); PLATELET MORPHOLOGY COMMENT NORMAL (NORMAL)
[2022-08-23] MEDS: LEVAQUIN PREMIX IV 500 MG 500 MG/100 ML BAG IV SCH (09:11)
[2022-08-23] MEDS: COREG TAB 6.25 MG PO SCH ×2 (09:12→21:02)
[2022-08-23] MEDS: TAMIFLU PO SCH ×2 (09:12→21:02)
[2022-08-23] MEDS: PLAVIX PO SCH (09:12)
[2022-08-23] MEDS: NORCO 10/325 TAB PO SCH ×4 (09:13→21:01)
[2022-08-23] MEDS: PROTONIX TAB 40 MG PO SCH (09:13)
[2022-08-23] MEDS: ZETIA TAB 10 MG PO SCH (09:14)
[2022-08-23] MEDS: PULMICORT NEB TX 0.5 MG NEB SCH ×2 (09:20→21:41)
--- NOTE | 2022-08-23 10:10 | RAD ---
HISTORYACUTE RESPIRATORY FAILURE, INFLUENZA A, SOBSTUDYCHEST, 1 [id number] vague areas of opacity are seen in the lung bases. This has a linear configuration in the left lung base. A more airspace type of appearance in the right lung base. Findings may represent atelectasis or pneumonia.Middle and upper lungs are clear. No pleural effusion or pneumothorax.Heart size at the upper limits of normal.Fixation hardware is present in the cervical spine. []IMPRESSION1. New basilar atelectasis or pneumonia, right side more than leftElectronically signed by: Natanael Fry (Aug 23, 2022 10:08:24)
[2022-08-23] MEDS: DIFLUCAN 200 MG IV PREMIX* 200 MG/100 ML BAG IV SCH (10:32)
--- NOTE | 2022-08-23 10:54 | PCM.PROG ---
Progress Note - Progress Note for Day of Date of Exam: 08/22/22 - Subjective Subjective: WAS ADMITTED FOR TREATMENT OF ACUTE RESPIRATORY FAILURE, INFLUENZA A, HYPOXIA, AND ACUTE BRONCHITIS. TODAY, HE IS ALERT AND ORIENTED, LYING IN BED ON MORNING ROUNDS. HE CONTINUES WITH COMPLAINTS OF SHORTNESS OF BREATH AND COUGH. HE DENIES SIGNIFICANT IMPROVEMENT SINCE ADMISSION. ON EXAMINATION, HEART IS REGULAR IN RATE AND RHYTHM. EXPIRATORY WHEEZING THROUGHOUT NOTED TO AUSCULTATION. ABDOMEN IS ROUND, SOFT, AND NON- TENDER WITH NORMAL BOWEL SOUNDS NOTED IN ALL QUADRANTS. NO UPPER OR LOWER EXTREMITY EDEMA NOTED. HE IS CURRENTLY UTILIZING OXYGEN VIA NASAL CANNULA AT 2-3 LPM. SATURATIONS HAVE OCCASIONALLY DROPPED TO 88-89%, BUT FOR THE MOST PART, REMAIN ABOVE 90. HIS VITALS THIS MORNING ARE: 98.4-88-20-92%-133/80. LABS WERE OBTAINED. WBC 5.4, RBC 4.22, HGB 13.7, HCT 38.6, PLT COUNT 94, SODIUM 138, POTASSIUM 3.8, CHLORIDE 105, CARBON DIOXIDE 25.6, BUN 11, CREATININE 0.87, GLUCOSE 215, CALCIUM 7.9, MAGNESIUM 1.8, AST 30, ALT 12, ALK PHOS 39, TOTAL PROTEIN 6.7, ALBUMIN 3.0. SPUTUM AND BLOOD CULTURES ARE PENDING. HE IS CURRENTLY RECEIVING NORMAL SALINE AT 75 ML/HR, SOLU-MEDROL 80MG IV Q8H, LEVAQUIN 500MG IV DAILY, DUONEBS Q4H, PULMICORT NEBS BID, TAMIFLU 75MG PO BID, AND HIS HOME MEDICATIONS WERE RESUMED. WE WILL CONTINUE WITH CURRENT PLAN OF CARE TODAY. WE WILL REPEAT LABS, ABG, AND CHEST XRAY IN THE MORNING. OTHERWISE, WE PLAN TO FOLLOW-UP WITH AM LABS AND CONTINUE TO MONITOR. TIME SPENT ON CLINICAL ASSESSMENT, REVIWING LABS AND IMAGING, DECISION MAKING, AND DOCUMENTATION GREATER THAN 45 MINUTES. - Past Medical Family Social History Past Med/Fam/Surg Hx: No changes since H&P Allergies: Allergies ceftriaxone [From Rocephin] Allergy (Verified 08/21/22 00:08) dexamethasone Allergy (Verified 12/02/17 11:39) - Review of Systems ROS: No change since H&P - Vital Signs and I&O's Vital Signs: Temperature 98.9 F Pulse Rate [Right] 66 Pulse Rate 84 Respiratory Rate 18 Blood Pressure [Right Arm] 136/80 Blood Pressure [Left Arm] 155/76 Blood Pressure 117/60 O2 Sat by Pulse Oximetry 91 Intake and Output: Intake & Output 08/20/22 08/21/22 08/22/22 08/23/22 11:59 11:59 11:59 11:59 Intake Total 0 / 0 4426 / 4426 2958 / 2958 Balance 0 / 0 4426 / 4426 2958 / 2958 - Physical Exam Oriented: Normal Eyes: Normal Ear: Normal Nose: Normal Throat: Normal Respiratory: Generalized, Wheezes Cardiovascular: Normal : Normal Auscultation: Bowel Sounds: Normal Palpation: Normal Tenderness: Normal Skin: Normal Musculoskeletal: Normal Psychiatric: Normal Mood Description: Calm Affect: Normal Speech Pattern: Clear - Laboratory and Diagnostics Result Diagrams: 08/23/22 05:48 08/23/22 05:48 Labs: 08/21/22 08:39 Sputum - Expectorated Sputum Sputum Culture - Preliminary 08/21/22 08:39 Sputum - Expectorated Sputum - Final Laboratory WBC 7.8 X10^3/uL (3.6-10.0) 08/23/22 05:48 RBC 4.08 X10^6/uL (4.7-6.0) L 08/23/22 05:48 Hgb 13.1 g/dL (13.5-18.0) L 08/23/22 05:48 Hct 37.7 % (42.0-54.0) L 08/23/22 05:48 MCV 92.5 fL (80.0-100.0) 08/23/22 05:48 MCH 32.2 pg (27.0-34.0) 08/23/22 05:48 MCHC 34.8 g/dL (33.0-35.0) 08/23/22 05:48 RDW 14.3 % (11.6-16.5) 08/23/22 05:48 Plt Count 92 X10^3/uL (150.0-450.0) L 08/23/22 05:48 Plt Count Comment Decreased (ADEQUATE) 08/23/22 05:48 MPV 8.7 fL (7.4-11.0) 08/23/22 05:48 Neut % (Auto) 90.2 % (42.0-75.0) H 08/23/22 05:48 Lymph % (Auto) 5.7 % (21.0-51.0) L 08/23/22 05:48 [place] % (Auto) 4.0 % (0.0-13.0) 08/23/22 05:48 Eos % (Auto) 0.0 % (0.9-2.9) L 08/23/22 05:48 Baso % (Auto) 0.1 % (0.2-1.0) L 08/23/22 05:48 Neut # (Auto) 7.0 x10^3/uL (2.2-4.8) H 08/23/22 05:48 Lymph # (Auto) 0.4 X10^3/uL (1.3-2.9) L 08/23/22 05:48 [place] # (Auto) 0.3 x10^3/uL (0.3-0.8) 08/23/22 05:48 Eos # (Auto) 0.0 x10^3/uL (0.0-0.2) 08/23/22 05:48 Baso # (Auto) 0.0 X10^3/uL (0.0-0.1) 08/23/22 05:48 Absolute Nucleated RBC 0.0 /100WBC 08/23/22 05:48 Total Counted 100 08/23/22 05:48 Neutrophils % (Manual) 89 % (39-76) H 08/23/22 05:48 Band Neutrophils % 2 % (0-10) 08/23/22 05:48 Lymphocytes % (Manual) 6 % (13-43) L 08/23/22 05:48 Monocytes % (Manual) 3 % (4-9) L 08/23/22 05:48 Plt Morphology Comment Normal (NORMAL) 08/23/22 05:48 RBC Morphology Normal (NORMAL) 08/23/22 05:48 D-Dimer 0.59 ug/ml (0.0-0.57) H 08/21/22 00:20 Sample Site Lrad 08/23/22 06:08 ABG pH 7.420 (7.35-7.45) 08/23/22 06:08 ABG pCO2 44.0 mmHg (35.0-45.0) 08/23/22 06:08 ABG pO2 62.0 mmHg (80.0-100.0) L 08/23/22 06:08 ABG HCO3 28.5 mmol/L (22-26) H 08/23/22 06:08 ABG O2 Saturation 92.0 % (90-100) 08/23/22 06:08 ABG Base Excess 3.5 mmol/L (-2.0-2.0) H 08/23/22 06:08 Giancarlo Test Pos 08/23/22 06:08 A-a Gradient 83.0 mmHg 08/23/22 06:08 FiO2 28.0 08/23/22 06:08 Blood Gas Comments More abg well-mtf 08/23/22 06:08 Sodium 137 mmol/L (136-145) 08/23/22 05:48 Corrected Sodium 140 mmol/L (136-145) 08/23/22 05:48 Potassium 3.8 mmol/L (3.5-5.1) 08/23/22 05:48 Chloride 103 mmol/L (98-107) 08/23/22 05:48 Carbon Dioxide 26.8 mmol/L (21-32) 08/23/22 05:48 BUN 12 mg/dL (7-18) 08/23/22 05:48 Creatinine 0.92 mg/dL (0.70-1.30) 08/23/22 05:48 Est GFR (MDRD) Af Amer > 60 (>60) 08/23/22 05:48 Est GFR (MDRD) Non-Af > 60 (>60) 08/23/22 05:48 Glucose 233 mg/dL (65-99) H 08/23/22 05:48 Lactic Acid 1.0 mmol/L (0.4-2.0) 08/21/22 00:20 Calcium 8.2 mg/dL (8.5-10.1) L 08/23/22 05:48 Corrected Calcium 9.2 mg/dL (8.5-10.1) 08/23/22 05:48 Magnesium 1.8 mg/dL (2.0-2.9) L 08/22/22 05:50 Total Bilirubin 0.30 mg/dL (0.2-1.0) 08/23/22 05:48 AST 35 Units/L (15-37) 08/23/22 05:48 ALT 24 Units/L (12-78) 08/23/22 05:48 Alkaline Phosphatase 38 Units/L (46-116) L 08/23/22 05:48 Creatine Kinase 287 Units/L (39-308) 08/21/22 00:20 Troponin I High Sens 9.2 ng/L (4.0-60.0) 08/21/22 00:20 C-Reactive Protein 129.50 mg/L (0-3.0) H 08/21/22 00:20 B-Natriuretic Peptide 28.7 pg/mL (0-79) 08/21/22 00:20 Total Protein 6.3 g/dL (6.4-8.2) L 08/23/22 05:48 Albumin 2.8 g/dL (3.4-5.0) L 08/23/22 05:48 Globulin 3.5 g/dL (2.5-4.5) 08/23/22 05:48 Albumin/Globulin Ratio 0.8 Ratio (1.1-2.1) L 08/23/22 05:48 SARS-CoV-2 (PCR) Negative (NEGATIVE) 08/21/22 00:07 Influenza Type A (PCR) Positive (NEGATIVE) A 08/21/22 00:07 Influenza Type B (PCR) Negative (NEGATIVE) 08/21/22 00:07 RSV (PCR) Negative (NEGATIVE) 08/21/22 00:07 - Plan (1) Acute respiratory failure Status: Acute Qualifiers: Respiratory failure complication: hypoxia Qualified Code(s): J96.01 - Acute respiratory failure with hypoxia Plan: NORMAL SALINE AT 75 ML/HR, SOLU-MEDROL 80MG IV Q8H, LEVAQUIN 500MG IV DAILY, DUONEBS Q4H, PULMICORT NEBS BID, TAMIFLU 75MG PO BID, AND HIS HOME MEDICATIONS WERE RESUMED. (2) Influenza A Status: Acute (3) Hypoxia Status: Acute (4) Bronchitis Status: Acute
--- NOTE | 2022-08-23 11:32 | PCM.PROG ---
Progress Note - Progress Note for Day of Date of Exam: 08/23/22 - Subjective Subjective: WAS ADMITTED FOR TREATMENT OF ACUTE RESPIRATORY FAILURE, INFLUENZA A, HYPOXIA, AND ACUTE BRONCHITIS. TODAY, HE IS ALERT AND ORIENTED, LYING IN BED ON MORNING ROUNDS. HE CONTINUES WITH COMPLAINTS OF SHORTNESS OF BREATH AND COUGH, BUT ADMITS TO SLIGHT IMPROVEMENT TODAY. ON EXAMINATION, HEART IS REGULAR IN RATE AND RHYTHM. EXPIRATORY WHEEZING THROUGHOUT NOTED TO AUSCULTATION. ABDOMEN IS ROUND, SOFT, AND NON-TENDER WITH NORMAL BOWEL SOUNDS NOTED IN ALL QUADRANTS. NO UPPER OR LOWER EXTREMITY EDEMA NOTED. HE IS CURRENTLY UTILIZING OXYGEN VIA NASAL CANNULA AT 2-3 LPM. SATURATIONS HAVE REMAINED ABOVE 90 THROUGHOUT THE NIGHT. HIS VITALS THIS MORNING ARE: 98.6-72-22-92%-143/79. LABS WERE OBTAINED. WBC 7.8, RBC 4.08, HGB 13.1, HCT 37.7, SODIUM 137, POTASSIUM 3.8, CHLORIDE 103, BUN 12, CREATININE 0.92, GLUCOSE 233, CALCIUM 8.2, AST 35, ALT 24, ALK PHOS 38, TOTAL PROTEIN 6.3, ALBUMIN 2.8. SPUTUM AND BLOOD CULTURES ARE PENDING. GROWTH OF YEAST IS NOTED IN SPUTUM CULTURE. CHEST XRAY WAS OBTAINED AND REVEALED: New vague areas of opacity are seen in the lung bases. This has a linear configuration in the left lung base. A more airspace type of appearance in the right lung base. Findings may represent atelectasis or pneumonia. Middle and upper lungs are clear. No pleural effusion or pneumothorax. Heart size at the upper limits of normal. Fixation hardware is present in the cervical spine. HE IS CURRENTLY RECEIVING NORMAL SALINE AT 75 ML/HR, SOLU-MEDROL 80MG IV Q8H, LEVAQUIN 500MG IV DAILY, DUONEBS Q4H, PULMICORT NEBS BID, TAMIFLU 75MG PO BID, AND HIS HOME MEDICATIONS WERE RESUMED. WE WILL CONTINUE WITH CURRENT PLAN OF CARE TODAY. WE WILL REPEAT LABS, ABG, AND CHEST XRAY IN THE MORNING. WE WILL ADD DIFLUCAN 200MG IV DAILY. OTHERWISE, WE PLAN TO FOLLOW-UP WITH AM LABS AND CONTINUE TO MONITOR. TIME SPENT ON CLINICAL ASSESSMENT, REVIWING LABS AND IMAGING, DECISION MAKING, AND DOCUMENTATION GREATER THAN 45 MINUTES. - Past Medical Family Social History Past Med/Fam/Surg Hx: No changes since H&P Allergies: Allergies ceftriaxone [From Rocephin] Allergy (Verified 08/21/22 00:08) dexamethasone Allergy (Verified 12/02/17 11:39) - Review of Systems ROS: No change since H&P - Vital Signs and I&O's Vital Signs: Temperature 98.9 F Pulse Rate [Right] 66 Pulse Rate 84 Respiratory Rate 18 Blood Pressure [Right Arm] 136/80 Blood Pressure [Left Arm] 155/76 Blood Pressure 117/60 O2 Sat by Pulse Oximetry 91 Intake and Output: Intake & Output 08/20/22 08/21/22 08/22/22 08/23/22 11:59 11:59 11:59 11:59 Intake Total 0 / 0 4426 / 4426 2958 / 2958 Balance 0 / 0 4426 / 4426 2958 / 2958 - Physical Exam Oriented: Normal Eyes: Normal Ear: Normal Nose: Normal Throat: Normal Respiratory: Generalized, Wheezes Cardiovascular: Normal : Normal Auscultation: Bowel Sounds: Normal Palpation: Normal Tenderness: Normal Skin: Normal Musculoskeletal: Normal Psychiatric: Normal Mood Description: Calm Affect: Normal Speech Pattern: Clear, Appropriate - Laboratory and Diagnostics Result Diagrams: 08/23/22 05:48 08/23/22 05:48 Labs: 08/21/22 08:39 Sputum - Expectorated Sputum Sputum Culture - Preliminary 08/21/22 08:39 Sputum - Expectorated Sputum - Final Laboratory WBC 7.8 X10^3/uL (3.6-10.0) 08/23/22 05:48 RBC 4.08 X10^6/uL (4.7-6.0) L 08/23/22 05:48 Hgb 13.1 g/dL (13.5-18.0) L 08/23/22 05:48 Hct 37.7 % (42.0-54.0) L 08/23/22 05:48 MCV 92.5 fL (80.0-100.0) 08/23/22 05:48 MCH 32.2 pg (27.0-34.0) 08/23/22 05:48 MCHC 34.8 g/dL (33.0-35.0) 08/23/22 05:48 RDW 14.3 % (11.6-16.5) 08/23/22 05:48 Plt Count 92 X10^3/uL (150.0-450.0) L 08/23/22 05:48 Plt Count Comment Decreased (ADEQUATE) 08/23/22 05:48 MPV 8.7 fL (7.4-11.0) 08/23/22 05:48 Neut % (Auto) 90.2 % (42.0-75.0) H 08/23/22 05:48 Lymph % (Auto) 5.7 % (21.0-51.0) L 08/23/22 05:48 [place] % (Auto) 4.0 % (0.0-13.0) 08/23/22 05:48 Eos % (Auto) 0.0 % (0.9-2.9) L 08/23/22 05:48 Baso % (Auto) 0.1 % (0.2-1.0) L 08/23/22 05:48 Neut # (Auto) 7.0 x10^3/uL (2.2-4.8) H 08/23/22 05:48 Lymph # (Auto) 0.4 X10^3/uL (1.3-2.9) L 08/23/22 05:48 [place] # (Auto) 0.3 x10^3/uL (0.3-0.8) 08/23/22 05:48 Eos # (Auto) 0.0 x10^3/uL (0.0-0.2) 08/23/22 05:48 Baso # (Auto) 0.0 X10^3/uL (0.0-0.1) 08/23/22 05:48 Absolute Nucleated RBC 0.0 /100WBC 08/23/22 05:48 Total Counted 100 08/23/22 05:48 Neutrophils % (Manual) 89 % (39-76) H 08/23/22 05:48 Band Neutrophils % 2 % (0-10) 08/23/22 05:48 Lymphocytes % (Manual) 6 % (13-43) L 08/23/22 05:48 Monocytes % (Manual) 3 % (4-9) L 08/23/22 05:48 Plt Morphology Comment Normal (NORMAL) 08/23/22 05:48 RBC Morphology Normal (NORMAL) 08/23/22 05:48 D-Dimer 0.59 ug/ml (0.0-0.57) H 08/21/22 00:20 Sample Site Lrad 08/23/22 06:08 ABG pH 7.420 (7.35-7.45) 08/23/22 06:08 ABG pCO2 44.0 mmHg (35.0-45.0) 08/23/22 06:08 ABG pO2 62.0 mmHg (80.0-100.0) L 08/23/22 06:08 ABG HCO3 28.5 mmol/L (22-26) H 08/23/22 06:08 ABG O2 Saturation 92.0 % (90-100) 08/23/22 06:08 ABG Base Excess 3.5 mmol/L (-2.0-2.0) H 08/23/22 06:08 Giancarlo Test Pos 08/23/22 06:08 A-a Gradient 83.0 mmHg 08/23/22 06:08 FiO2 28.0 08/23/22 06:08 Blood Gas Comments More abg well-mtf 08/23/22 06:08 Sodium 137 mmol/L (136-145) 08/23/22 05:48 Corrected Sodium 140 mmol/L (136-145) 08/23/22 05:48 Potassium 3.8 mmol/L (3.5-5.1) 08/23/22 05:48 Chloride 103 mmol/L (98-107) 08/23/22 05:48 Carbon Dioxide 26.8 mmol/L (21-32) 08/23/22 05:48 BUN 12 mg/dL (7-18) 08/23/22 05:48 Creatinine 0.92 mg/dL (0.70-1.30) 08/23/22 05:48 Est GFR (MDRD) Af Amer > 60 (>60) 08/23/22 05:48 Est GFR (MDRD) Non-Af > 60 (>60) 08/23/22 05:48 Glucose 233 mg/dL (65-99) H 08/23/22 05:48 Lactic Acid 1.0 mmol/L (0.4-2.0) 08/21/22 00:20 Calcium 8.2 mg/dL (8.5-10.1) L 08/23/22 05:48 Corrected Calcium 9.2 mg/dL (8.5-10.1) 08/23/22 05:48 Magnesium 1.8 mg/dL (2.0-2.9) L 08/22/22 05:50 Total Bilirubin 0.30 mg/dL (0.2-1.0) 08/23/22 05:48 AST 35 Units/L (15-37) 08/23/22 05:48 ALT 24 Units/L (12-78) 08/23/22 05:48 Alkaline Phosphatase 38 Units/L (46-116) L 08/23/22 05:48 Creatine Kinase 287 Units/L (39-308) 08/21/22 00:20 Troponin I High Sens 9.2 ng/L (4.0-60.0) 08/21/22 00:20 C-Reactive Protein 129.50 mg/L (0-3.0) H 08/21/22 00:20 B-Natriuretic Peptide 28.7 pg/mL (0-79) 08/21/22 00:20 Total Protein 6.3 g/dL (6.4-8.2) L 08/23/22 05:48 Albumin 2.8 g/dL (3.4-5.0) L 08/23/22 05:48 Globulin 3.5 g/dL (2.5-4.5) 08/23/22 05:48 Albumin/Globulin Ratio 0.8 Ratio (1.1-2.1) L 08/23/22 05:48 SARS-CoV-2 (PCR) Negative (NEGATIVE) 08/21/22 00:07 Influenza Type A (PCR) Positive (NEGATIVE) A 08/21/22 00:07 Influenza Type B (PCR) Negative (NEGATIVE) 08/21/22 00:07 RSV (PCR) Negative (NEGATIVE) 08/21/22 00:07 - Plan (1) Acute respiratory failure Status: Acute Qualifiers: Respiratory failure complication: hypoxia Qualified Code(s): J96.01 - Acute respiratory failure with hypoxia Plan: NORMAL SALINE AT 75 ML/HR, SOLU-MEDROL 80MG IV Q8H, LEVAQUIN 500MG IV DAILY, DIFLUCAN 200MG IV DIALY, DUONEBS Q4H, PULMICORT NEBS BID, TAMIFLU 75MG PO BID, AND HIS HOME MEDICATIONS WERE RESUMED. (2) Influenza A Status: Acute (3) Hypoxia Status: Acute (4) Pneumonia Status: Acute Qualifiers: Pneumonia type: due to unspecified organism Laterality: bilateral Lung location: lower lobe of lung Qualified Code(s): J18.9 - Pneumonia, unspecified organism
[2022-08-23] MEDS: NS 1,000 ML IV 1,000 ML IV SCH ×2 (13:26→23:16)
[2022-08-24] MEDS: DUONEB 0.5 MG/3 MG (3 mL) NEB SCH ×3 (00:05→08:44)
[2022-08-24] MEDS: NS 1,000 ML IV 1,000 ML IV SCH (03:00)
[2022-08-24] MEDS: SOLU-Medrol 40 MG VIAL IVP SCH (05:02)
--- NOTE | 2022-08-24 06:30 | RAD ---
HISTORYShortness of breathSTUDYChest AP [id number] heart is within normal limits in size. The amna are normal. The lungs are well inflated and free of acute infiltrates. No pleural effusions are identified. No pneumothorax is identified. Bony thorax is unremarkable.IMPRESSIONNo significant abnormality identifiedElectronically signed by: BEBE POLANCO (Aug 24, 2022 06:28:32)
[2022-08-24 06:32] LABS: BASOPHILS % (AUTO) 0.1 % (0.2-1.0); HEMOGLOBIN 14.1 g/dL (13.5-18.0); LYMPHOCYTES # (AUTO) 0.5 X10^3/uL (1.3-2.9); LYMPHOCYTES % (AUTO) 6.6 % (21.0-51.0); MEAN CORPUSCULAR HEMOGLOBIN 32.2 pg (27.0-34.0); MEAN CORPUSCULAR HGB CONC 35.1 g/dL (33.0-35.0); MEAN CORPUSCULAR VOLUME 91.8 fL (80.0-100.0); MEAN PLATELET VOLUME 8.9 fL (7.4-11.0); MONOCYTES # (AUTO) 0.2 x10^3/uL (0.3-0.8); MONOCYTES % (AUTO) 3.4 % (0.0-13.0); NEUTROPHILS # (AUTO) 6.4 x10^3/uL (2.2-4.8); NEUTROPHILS % (AUTO) 89.9 % (42.0-75.0); RED BLOOD COUNT 4.36 X10^6/uL (4.7-6.0); WHITE BLOOD COUNT 7.1 X10^3/uL (3.6-10.0)
[2022-08-24 06:39] LABS: ALANINE AMINOTRANSFERASE 150 Units/L (12-78); ALKALINE PHOSPHATASE 40 Units/L (46-116); ASPARTATE AMINO TRANSFERASE 124 Units/L (15-37); BLOOD UREA NITROGEN 13 mg/dL (7-18); CALCIUM 8.4 mg/dL (8.5-10.1); CARBON DIOXIDE 28.3 mmol/L (21-32); CHLORIDE 101 mmol/L (98-107); COR CA(FOR HYPOALB) 9.2 mg/dL (8.5-10.1); COR NA(FOR HYPERGLY) 141 mmol/L (136-145); CREATININE 0.98 mg/dL (0.70-1.30); SODIUM 138 mmol/L (136-145); TOTAL PROTEIN 6.6 g/dL (6.4-8.2); eGFR NON BLACK RACES > 60 (>60)
[2022-08-24] MEDS: PROTONIX TAB 40 MG PO SCH (08:39)
[2022-08-24] MEDS: NORCO 10/325 TAB PO SCH (08:39)
[2022-08-24] MEDS: ZETIA TAB 10 MG PO SCH (08:39)
[2022-08-24] MEDS: COREG TAB 6.25 MG PO SCH (08:39)
[2022-08-24] MEDS: PLAVIX PO SCH (08:39)
[2022-08-24] MEDS: TAMIFLU PO SCH (08:39)
[2022-08-24] MEDS: LEVAQUIN PREMIX IV 500 MG 500 MG/100 ML BAG IV SCH (08:40)
[2022-08-24] MEDS: PULMICORT NEB TX 0.5 MG NEB SCH (08:44)
[2022-08-24] MEDS: DIFLUCAN 200 MG IV PREMIX* 200 MG/100 ML BAG IV SCH (09:43)
[2022-08-24 12:32] VITALS: BP 138/93
== END 2022-08-24 14:00 | disposition home or self-care (01) ==
LOC: MED/SURG 23:51 → ER 23:51 → MED/SURG 08-21 05:59
PROVIDERS: ADMIT Internal Medicine; ATTEND Internal Medicine
DX: K21.9 Gastro-esophageal reflux disease without esophagitis; B37.1 Pulmonary candidiasis; J10.1 Influenza due to other identified influenza virus with other respiratory manifestations; R79.82 Elevated C-reactive protein (CRP); I10 Essential (primary) hypertension; J96.01 Acute respiratory failure with hypoxia; J44.9 Chronic obstructive pulmonary disease, unspecified; Z20.822 Contact with and (suspected) exposure to COVID-19; I25.10 Atherosclerotic heart disease of native coronary artery without angina pectoris